=== PATIENT | female | born 1995 | race Caucasian/White ===

== ENCOUNTER 2019-03-14 12:06 | Emergency (ER) | payer MEDICAID ==
[~2019-03-14] VITALS: Ht 154.9 cm; Wt 52.6 kg
[2019-03-14 12:14] VITALS: BP 118/82; Ht 154.9 cm; Wt 52.6 kg
== END 2019-03-14 12:54 | disposition home or self-care (01) ==
LOC: ED 12:06
DX: H73.011 Bullous myringitis, right ear (principal); J98.01 Acute bronchospasm; Z90.89 Acquired absence of other organs; Z90.49 Acquired absence of other specified parts of digestive tract

== ENCOUNTER 2019-03-16 06:54 | Emergency (ER) | payer MEDICAID ==
[~2019-03-16] VITALS: Ht 154.9 cm; Wt 51.9 kg
[2019-03-16 06:58] VITALS: Ht 154.9 cm; Wt 51.9 kg
[2019-03-16 08:23] VITALS: BP 116/72
== END 2019-03-16 08:10 | disposition home or self-care (01) ==
LOC: ED 06:54
DX: H66.91 Otitis media, unspecified, right ear (principal); Z87.19 Personal history of other diseases of the digestive system